=== PATIENT | female | born 1990 | race Caucasian/White ===

== ENCOUNTER 2019-05-02 19:54 | Emergency (ER) | payer OTHER ==
[~2019-05-02] VITALS: Ht 165.1 cm; Wt 61.9 kg
[~2019-05-02 19:54] MED LIST: ACET-141 PO; AMOX1TAB10 PO; HYDR-4011 PO
[2019-05-02 19:56] VITALS: BP 110/66; PULSE 104; RESP 20; Ht 165.1 cm; Wt 61.9 kg
[2019-05-02] MEDS ORDERED: DIPHTH/TET/ACEL PERTUSS (ADULT) 0.5 ML VIAL IM* ONE (21:00)
== END 2019-05-02 22:45 | disposition home or self-care (01) ==
LOC: FTE 19:54
DX: S41.151A Open bite of right upper arm, initial encounter (principal); W54.0XXA Bitten by dog, initial encounter; Y92.9 Unspecified place or not applicable; Z23 Encounter for immunization
CPT/HCPCS: 73060; 90471; 90715; Z7502

== ENCOUNTER 2019-05-05 22:58 | Emergency (ER) | payer OTHER ==
[~2019-05-05] VITALS: Ht 165.1 cm; Wt 63.1 kg
[2019-05-05 23:04] VITALS: BP 108/57; PULSE 104; RESP 19; Ht 165.1 cm; Wt 63.1 kg
== END 2019-05-06 00:27 | disposition home or self-care (01) ==
LOC: E/R 22:58
DX: S41.131D Puncture wound without foreign body of right upper arm, subsequent encounter (principal); W54.0XXD Bitten by dog, subsequent encounter; Z48.01 Encounter for change or removal of surgical wound dressing
CPT/HCPCS: 99283